=== PATIENT | male | born 1950 | race Caucasian/White ===

== ENCOUNTER 2017-06-25 21:05 | Emergency (ER) | payer BC ==
[~2017-06-25] VITALS: Ht 185.4 cm; Wt 90.7 kg
[2017-06-25] MEDS ORDERED: MAG HYDROX/AL HYDROX/SIMETH 30 ML LIQUID UDC PO ONE (21:45)
[2017-06-25] MEDS ORDERED: IV NORMAL SALINE 500 ML BAG IV ONE (21:45)
[2017-06-25] MEDS ORDERED: ASPIRIN 81 MG TAB.CHEW PO ONE (21:45)
[2017-06-25] MEDS ORDERED: NITROGLYCERIN 0.4 MG/TAB BOTTLE SL ONE ×2 (21:45→22:27)
[2017-06-25] MEDS ORDERED: PANTOPRAZOLE SODIUM 40 MG VIAL IV ONE (21:45)
--- NOTE | 2017-06-25 21:57 | NUR ---
Pt BIB [facility], 18g IV left AC. Pt states he has had CP, described as burning, intermittantly for about 2 weeks, worse last night and today, with nausea and pain radiating down left arm, now 6/10. Pt denies SOB, dizziness, no other complaints, no distress noted.
[2017-06-25 22:06] LABS: BASOPHILS % (AUTO) 0.1 % (0.0-2.0); EOSINOPHILS % (AUTO) 0.2 % (0.0-7.0); HEMATOCRIT 44.4 % (36.7-47.1); HEMOGLOBIN 15.4 g/dL (12.5-16.3); LYMPHOCYTES # (AUTO) 0.4 K/uL (20.0-40.0); LYMPHOCYTES % (AUTO) 4.7 % (20.5-51.5); MEAN CORPUSCULAR HEMOGLOBIN 30.9 uug (23.8-33.4); MEAN CORPUSCULAR HGB CONC 35 g/dL (32.5-36.3); MEAN CORPUSCULAR VOLUME 89.3 fL (73.0-96.2); MONOCYTES # (AUTO) 0.6 K/uL (2.0-10.0); MONOCYTES % (AUTO) 6.9 % (0.0-11.0); NEUTROPHILS # (AUTO) 7.5 K/uL (1.8-8.9); NEUTROPHILS % (AUTO) 88.1 % (38.5-71.5); PLATELET COUNT (AUTO) 208 K/uL (152-348); RED BLOOD CELL COUNT(AUTO) 4.98 MIL/uL (4.06-5.63); WHITE BLOOD COUNT (AUTO) 8.5 K/uL (3.6-10.2)
[2017-06-25 22:20] LABS: CREATININE 0.9 mg/dL (0.6-1.3); POTASSIUM 4.1 mmol/L (3.5-5.1)
[2017-06-25] MEDS ORDERED: ASPIRIN 81 MG TAB.CHEW ONE (22:26)
[2017-06-25] MEDS ORDERED: PANTOPRAZOLE SODIUM 40 MG VIAL ONE (22:27)
[2017-06-25] MEDS ORDERED: MAG HYDROX/AL HYDROX/SIMETH 30 ML LIQUID UDC ONE (22:27)
--- NOTE | 2017-06-25 22:40 | NUR ---
After 3 nitroglycerine SL, FM=935/85. Pain never got lower than 4/10, down from 6/10 prior to administration.
--- NOTE | 2017-06-25 22:47 | NUR ---
Lab called with critical value, troponin = 15.859, notified
[2017-06-25] MEDS ORDERED: METOPROLOL TARTRATE 5 MG/5 ML VIAL IVP ONE ×6 (23:00→23:37)
[2017-06-25] MEDS ORDERED: ONDANSETRON 4 MG/2 ML VIAL IV ONE (23:00)
[2017-06-25] MEDS ORDERED: MORPHINE SULFATE 4 MG/1 ML DISP.SYRIN IV ONE (23:00)
--- NOTE | 2017-06-25 23:04 | NUR ---
CHRISTINA FROM [facility] CALLED BACK. REQUESTING FACESHEET TO BE FAXED TO [phone]
[2017-06-25 23:09] LABS: BILIRUBIN,DIRECT 0.2 mg/dL (0.0-0.2); TOTAL PROTEIN, SERUM 7.9 g/dL (6.4-8.2)
--- NOTE | 2017-06-25 23:11 | NUR ---
was called for pt transfer to [facility], EMS dispatched.
[2017-06-25] MEDS ORDERED: MORPHINE SULFATE 4 MG/1 ML DISP.SYRIN ONE (23:17)
[2017-06-25] MEDS ORDERED: ONDANSETRON 4 MG/2 ML VIAL ONE (23:17)
[2017-06-25 23:23] VITALS: BP 157/101
--- NOTE | 2017-06-25 23:27 | NUR ---
Gave report and pt chart to Paramedics, KRISTEN RA 83. Pt reports pain is down to 3/10.
[2017-06-25] MEDS ORDERED: NITROGLYCERIN OINT 1 GM PACKET TP ONE ×2 (23:30→23:35)
== END 2017-06-25 23:42 | disposition short-term general hospital (02) ==
LOC: ER 21:07
DX: I21.3 ST elevation (STEMI) myocardial infarction of unspecified site (principal); F17.200 Nicotine dependence, unspecified, uncomplicated
CPT/HCPCS: 36415; 70030-TC; 71045; 84443; 85025; 85730; 93005; A4663; C9113; J2270; J2405; J3490; J7040